=== PATIENT | female | born 1990 | race Caucasian/White ===

== ENCOUNTER 2021-05-04 06:07 | Day surgery (SDC) | payer BC, MEDICAID ==
[~2021-05-04 06:07] MED LIST: Dextrose 5%-0.45% NaCl 1,000 ML IV SCH; Midazolam 1 MG/ML 2 ML SDV ONE; Sodium Chloride 0.9% 10 ML Syringe FLUSH PRN; Sodium Chloride 0.9% 10 ML Syringe FLUSH SCH; fentaNYL 100 MCG/2 ML SDV ONE
[2021-05-04] MEDS ORDERED: fentaNYL 100 MCG/2 ML SDV IV ONE ×3 (06:08→07:30)
[2021-05-04] MEDS ORDERED: Midazolam 1 MG/ML 2 ML SDV IV ONE ×5 (06:08→07:37)
[2021-05-04] MEDS ORDERED: Midazolam 1 MG/ML 2 ML SDV ONE (09:28)
[2021-05-04 11:22] VITALS: BP 152/104; PULSE 76
== END 2021-05-04 09:50 | disposition home or self-care (01) ==
LOC: DL.ENDO 06:07
PROVIDERS: ATTEND Internal Medicine Gastroenterology
DX: K29.50 Unspecified chronic gastritis without bleeding (principal); K31.84 Gastroparesis; K31.89 Other diseases of stomach and duodenum; Z20.822 Contact with and (suspected) exposure to COVID-19; Z01.812 Encounter for preprocedural laboratory examination
CPT/HCPCS: 43239; 87077; 87635; J2250; J3010; J7042; U0002

== ENCOUNTER 2021-05-09 06:25 | Day surgery (SDC) | payer BC, MEDICAID ==
[~2021-05-09 06:25] MED LIST changes: -Sodium Chloride 0.9% 10 ML Syringe FLUSH PRN
[2021-05-09] MEDS ORDERED: Midazolam 1 MG/ML 2 ML SDV IV ONE ×8 (06:26→07:43)
[2021-05-09] MEDS ORDERED: fentaNYL 100 MCG/2 ML SDV IV ONE ×7 (06:26→07:40)
[2021-05-09 09:52] VITALS: BP 139/82; PULSE 106
== END 2021-05-09 10:00 | disposition home or self-care (01) ==
LOC: DL.ENDO 06:25
PROVIDERS: ATTEND Internal Medicine Gastroenterology
DX: K52.9 Noninfective gastroenteritis and colitis, unspecified (principal); K50.90 Crohn's disease, unspecified, without complications; Z90.49 Acquired absence of other specified parts of digestive tract; F17.210 Nicotine dependence, cigarettes, uncomplicated; E66.09 Other obesity due to excess calories; F32.A Depression, unspecified; Z68.34 Body mass index [BMI] 34.0-34.9, adult
CPT/HCPCS: 45380; J2250; J3010; J7042

== ENCOUNTER 2021-12-28 05:47 | Day surgery (SDC) | payer BC ==
[2021-12-28] MEDS ORDERED: fentaNYL 100 MCG/2 ML SDV IV ONE (05:48)
[2021-12-28] MEDS ORDERED: Midazolam 1 MG/ML 2 ML SDV IV ONE (05:48)
[2021-12-28] MEDS ORDERED: Midazolam 1 MG/ML 2 ML SDV ONE ×2 (06:14→07:23)
[2021-12-28] MEDS: Dextrose 5%-0.45% NaCl 1,000 ML IV SCH (06:15)
[2021-12-28] MEDS ORDERED: fentaNYL 100 MCG/2 ML SDV ONE (06:15)
[2021-12-28] MEDS: fentaNYL 100 MCG/2 ML SDV IV ONE ×2 (07:06→07:07)
[2021-12-28] MEDS: Midazolam 1 MG/ML 2 ML SDV IV ONE ×4 (07:07→07:13)
[2021-12-28 10:38] VITALS: PULSE 98
[2021-12-28 10:55] VITALS: BP 159/99
== END 2021-12-28 09:35 | disposition home or self-care (01) ==
LOC: DL.ENDO 05:47
PROVIDERS: ATTEND Internal Medicine Gastroenterology
DX: K31.89 Other diseases of stomach and duodenum (principal); K50.90 Crohn's disease, unspecified, without complications; K25.9 Gastric ulcer, unspecified as acute or chronic, without hemorrhage or perforation; E66.09 Other obesity due to excess calories; F41.1 Generalized anxiety disorder; F32.A Depression, unspecified; Z68.30 Body mass index [BMI] 30.0-30.9, adult; Z90.49 Acquired absence of other specified parts of digestive tract
CPT/HCPCS: J2250; J3010; J7042